=== PATIENT | female | born 1970 | race Asian ===

== ENCOUNTER 2016-04-28 18:35 | Emergency (ER) | payer OTHER ==
[~2016-04-28] VITALS: Ht 170.2 cm; Wt 160.1 kg
[~2016-04-28 18:35] MED LIST: AMLO2.5T PO; CARV12.5 PO; DITROPAN XL10 MG PO; HYDR25TA60 PO; KLOR-CON 1010 MEQ OR; LYRICA 100 MG100 MG OR; METF500T PO; OMEP20CA PO; SINGULAIR10 MG PO
[2016-04-28 19:45] LABS: PLATELET COUNT 348 K/uL (152-353)
[2016-04-28 19:46] LABS: POTASSIUM 3.4 mmol/L (3.6-5.2); SODIUM 134 mmol/L (136-145)
[2016-04-28 22:03] VITALS: BP 130/86; TEMP 98.2
== END 2016-04-28 22:04 | disposition home or self-care (01) ==
LOC: ED 18:35
DX: M17.0 Bilateral primary osteoarthritis of knee (principal); M25.462 Effusion, left knee; E66.09 Other obesity due to excess calories
CPT/HCPCS: 80053; 84550; 85027; 87070; 87205; 89060; 96372; 99283; J1100; J1885

== ENCOUNTER 2016-05-21 05:42 | Emergency (ER) | payer OTHER ==
[~2016-05-21] VITALS: Ht 170.2 cm; Wt 162.8 kg
[2016-05-21 06:28] LABS: PLATELET COUNT 330 K/uL (152-353)
[2016-05-21 06:36] LABS: POTASSIUM 3.5 mmol/L (3.6-5.2); SODIUM 133 mmol/L (136-145)
[2016-05-21 06:43] LABS: PARTIAL THROMBOPLASTIN TIME 24.1 SECONDS (24.5-33.6)
[2016-05-21 07:08] VITALS: BP 151/93; TEMP 98.1
== END 2016-05-21 07:11 | disposition home or self-care (01) ==
LOC: ED 05:42
DX: R07.89 Other chest pain (principal)
CPT/HCPCS: 36415; 80053; 82550; 84484; 85027; 85610; 85730; 86318; 99283

== ENCOUNTER 2016-07-02 19:05 | Emergency (ER) | payer OTHER ==
[~2016-07-02] VITALS: Ht 170.2 cm; Wt 160.1 kg
[2016-07-02 19:16] VITALS: BP 171/101; TEMP 98.4
[2016-07-02] MEDS ORDERED: PROTONIX20 MG PO (19:22)
[2016-07-02] MEDS ORDERED: ASA LOW DOSE81 MG PO (19:23)
[2016-07-02] MEDS ORDERED: XANAX XR1 MG PO (19:25)
[2016-07-02] MEDS ORDERED: SOMA350 MG PO (19:25)
[2016-07-02] MEDS ORDERED: HYZAAR1 TA2 PO (19:25)
== END 2016-07-02 20:29 | disposition home or self-care (01) ==
LOC: ED 19:05
DX: M17.12 Unilateral primary osteoarthritis, left knee (principal)
CPT/HCPCS: 96372; 99282; J1885

== ENCOUNTER 2017-04-01 19:30 | Emergency (ER) | payer OTHER ==
[~2017-04-01] VITALS: Ht 167.6 cm; Wt 146.5 kg
[~2017-04-01 19:30] MED LIST changes: +ASA LOW DOSE81 MG PO; +HYZAAR1 TA2 PO; +PROTONIX20 MG PO; +SOMA350 MG PO; +XANAX XR1 MG PO
[2017-04-01 20:39] LABS: PLATELET COUNT 355 K/uL (152-353)
[2017-04-01 20:48] LABS: POTASSIUM 3.5 mmol/L (3.6-5.2); SODIUM 134 mmol/L (136-145)
[2017-04-01 21:44] VITALS: BP 143/89; TEMP 97.5
== END 2017-04-01 21:50 | disposition home or self-care (01) ==
LOC: ED 19:30
PROVIDERS: Specialist
DX: J45.901 Unspecified asthma with (acute) exacerbation (principal)
CPT/HCPCS: 36415; 80048; 83735; 85027; 94664; 94760; 96374; 96375; 99284; J1200; J2930

== ENCOUNTER 2017-07-06 21:08 | Emergency (ER) | payer OTHER ==
[~2017-07-06] VITALS: Ht 170.2 cm; Wt 143.8 kg
[2017-07-06 21:24] VITALS: BP 154/110; TEMP 98.1
[2017-07-06 21:53] LABS: PLATELET COUNT 360 K/uL (152-353)
[2017-07-06 22:00] LABS: POTASSIUM 3.6 mmol/L (3.6-5.2)
== END 2017-07-06 22:05 | disposition home or self-care (01) ==
LOC: ED 21:08
DX: R10.31 Right lower quadrant pain (principal)
CPT/HCPCS: 36415; 80053; 85027; 99283

== ENCOUNTER 2018-02-01 14:15 | Emergency (ER) | payer OTHER ==
[~2018-02-01] VITALS: Ht 167.6 cm; Wt 158.8 kg
[2018-02-01 14:30] VITALS: TEMP 97.5
[2018-02-01 16:03] VITALS: BP 131/86
== END 2018-02-01 16:03 | disposition home or self-care (01) ==
LOC: ED 14:15
DX: G57.82 Other specified mononeuropathies of left lower limb (principal)
CPT/HCPCS: 99283

== ENCOUNTER 2018-03-18 13:49 | Emergency (ER) | payer OTHER ==
[~2018-03-18] VITALS: Ht 167.6 cm; Wt 158.8 kg
[2018-03-18 15:41] LABS: PLATELET COUNT 319 K/uL (152-353)
[2018-03-18 15:52] LABS: POTASSIUM 3.4 mmol/L (3.6-5.2)
[2018-03-18 17:14] VITALS: BP 174/80; TEMP 98
== END 2018-03-18 17:15 | disposition home or self-care (01) ==
LOC: ED 13:49
PROVIDERS: Family Medicine
DX: R10.84 Generalized abdominal pain (principal); K59.09 Other constipation; D72.828 Other elevated white blood cell count
CPT/HCPCS: 36415; 80053; 81000; 85027; 99283

== ENCOUNTER 2018-08-26 18:03 | Emergency (ER) | payer OTHER ==
[~2018-08-26] VITALS: Ht 170.2 cm; Wt 147.0 kg
[2018-08-26 19:46] VITALS: BP 147/86; TEMP 98.2
== END 2018-08-26 19:47 | disposition home or self-care (01) ==
LOC: ED 18:03
DX: J45.909 Unspecified asthma, uncomplicated (principal)
CPT/HCPCS: 94664; 96372; 99282; J2930

== ENCOUNTER 2019-01-03 14:42 | Emergency (ER) | payer OTHER ==
[~2019-01-03] VITALS: Ht 170.2 cm; Wt 156.0 kg
[2019-01-03 14:48] VITALS: BP 122/68; TEMP 97.9
== END 2019-01-03 15:28 | disposition home or self-care (01) ==
LOC: ED 14:42
DX: R10.31 Right lower quadrant pain (principal); R10.32 Left lower quadrant pain
CPT/HCPCS: 81000; 81025; 99283

== ENCOUNTER 2019-12-14 12:25 | Outpatient (CLI) | payer OTHER | END 2019-12-14 20:48 | disposition home or self-care (01) | LOC: RAD 12:25 | DX: M25.562 Pain in left knee (principal); M25.561 Pain in right knee ==

== ENCOUNTER 2020-12-18 10:40 | Outpatient (CLI) | payer OTHER | END 2020-12-18 20:16 | disposition home or self-care (01) | LOC: RAD 10:40 | PROVIDERS: ATTEND Physical Medicine & Rehabilitation Pain Medicine | DX: M17.12 Unilateral primary osteoarthritis, left knee (principal); M47.816 Spondylosis without myelopathy or radiculopathy, lumbar region ==

== ENCOUNTER 2021-02-16 17:00 | Emergency (ER) | payer OTHER ==
[~2021-02-16] VITALS: Ht 170.2 cm; Wt 165.6 kg
[2021-02-16 17:10] VITALS: TEMP 98.2
[2021-02-16 17:50] LABS: PLATELET COUNT 409 K/uL (152-353)
[2021-02-16 18:00] VITALS: BP 144/77
[2021-02-16 18:03] LABS: POTASSIUM 3.6 mmol/L (3.6-5.2); SODIUM 139 mmol/L (136-145)
[2021-02-16 18:37] LABS: PARTIAL THROMBOPLASTIN TIME 26.7 SECONDS (24.5-33.6)
== END 2021-02-16 19:22 | disposition still patient (30) ==
LOC: ED 17:00
PROVIDERS: Hospitalist
DX: R22.43 Localized swelling, mass and lump, lower limb, bilateral (principal); M79.605 Pain in left leg; Z53.29 Procedure and treatment not carried out because of patient's decision for other reasons; R60.0 Localized edema
CPT/HCPCS: 36415; 80053; 82550; 83880; 84484; 85027; 85379; 85610; 85730; 93005; 96372; 96374; 99284; J1650; J1940

== ENCOUNTER 2021-02-17 16:05 | Outpatient (CLI) | payer OTHER | END 2021-02-17 20:09 | disposition home or self-care (01) | LOC: US 16:05 | PROVIDERS: ATTEND Nurse Practitioner Family | DX: R60.0 Localized edema (principal); M79.605 Pain in left leg ==

== ENCOUNTER 2021-04-09 09:04 | Outpatient (CLI) | payer OTHER | END 2021-04-09 19:22 | disposition home or self-care (01) | LOC: CT 09:04 | PROVIDERS: ATTEND Physical Medicine & Rehabilitation Pain Medicine | DX: M47.816 Spondylosis without myelopathy or radiculopathy, lumbar region (principal) ==

== ENCOUNTER 2021-06-08 09:32 | Outpatient (CLI) | payer OTHER | END 2021-06-08 19:12 | disposition home or self-care (01) | LOC: CT 09:32 | PROVIDERS: ATTEND Physical Medicine & Rehabilitation Pain Medicine | DX: M47.816 Spondylosis without myelopathy or radiculopathy, lumbar region (principal) ==